=== PATIENT | male | born 1945 | race Caucasian/White ===

== ENCOUNTER 2017-12-06 06:30 | Day surgery (SDC) | payer MEDICARE, BC ==
[2017-12-06] MEDS ORDERED: Lactated Ringers 1,000 ML IV SCH (07:15)
[2017-12-06] MEDS ORDERED: Propofol 200 MG/20 ML SDV ONE (07:29)
[2017-12-06] MEDS ORDERED: fentaNYL 100 MCG/2 ML SDV ONE (07:30)
--- NOTE | 2017-12-06 11:48 | OR ---
DATE OF PROCEDURE: 12/06/2017 PREOPERATIVE DIAGNOSIS: Colon cancer screening. POSTOPERATIVE DIAGNOSES: 1. Diverticulosis. 2. Small cecal polyp. SURGEON: Dieter Reyna MD. PROCEDURES PERFORMED: Colonoscopy to the cecum with biopsy resection of small cecal polyp. ANESTHESIA: IV anesthesia with monitored anesthesia care. INDICATION: This 72-year-old white male is here for a colonoscopy for colon cancer screening. His last colonoscopic exam he says was done TEN years ago. I counseled him for the procedure including risks and alternatives, and he gave his informed consent to proceed. DESCRIPTION OF PROCEDURE: The patient was placed in the left lateral decubitus position. IV anesthesia was administered by the Anesthesia Service. Time-out was held. A rectal exam was performed, which was unremarkable. The flexible video Olympus colonoscope was introduced through his anus, up his rectum and out his colon all the way to the cecum. En route, we saw multiple left-sided diverticula. Once the cecum was reached, the scope was slowly withdrawn, examining the mucosa throughout. In the cecum, we saw a small polyp, which was removed with a couple of bites of the biopsy forceps. The scope was withdrawn. We saw a couple of diverticula in the right colon. There was no bleeding or inflammation associated with them. No other lesions were noted until we reached the left colon. Here and in the sigmoid colon, we saw multiple diverticula with, again, no bleeding or inflammation associated with any of them. The scope was retroflexed in the rectum with the distal rectum appearing unremarkable. The scope was straightened and removed. He tolerated the procedure well. Dieter Reyna MD /[id number] MTDD
== END 2017-12-06 09:20 | disposition home or self-care (01) ==
LOC: JP.SDS 06:30
PROVIDERS: ATTEND Surgery
DX: Z12.11 Encounter for screening for malignant neoplasm of colon (principal); D12.0 Benign neoplasm of cecum; K57.30 Diverticulosis of large intestine without perforation or abscess without bleeding; I10 Essential (primary) hypertension; M19.90 Unspecified osteoarthritis, unspecified site; E78.00 Pure hypercholesterolemia, unspecified
CPT/HCPCS: 45380; J2704; J3010; J7120

== ENCOUNTER 2020-12-16 07:02 | Day surgery (SDC) | payer BC, MEDICARE, OTHER ==
[2020-12-16] MEDS ORDERED: fentaNYL 100 MCG/2 ML SDV ONE (07:20)
[2020-12-16] MEDS ORDERED: Midazolam 1 MG/ML 2 ML SDV ONE (07:20)
[2020-12-16] MEDS ORDERED: Propofol 200 MG/20 ML SDV ONE (07:20)
[2020-12-16] MEDS ORDERED: Sodium Chloride 0.9% 1,000 ML IV SCH (08:00)
--- NOTE | 2020-12-16 13:55 | OR ---
DATE OF PROCEDURE: 12/16/2020 SURGEON: Arun Enriquez MD PROCEDURE: Colonoscopy. FINDINGS: 1. Diverticulosis, mild, mostly limited to sigmoid colon. 2. No other gross abnormalities. COMPLICATIONS: None. RETIREMENT SALES CONSULTANT: None. ANESTHESIA: MAC. PREOPERATIVE DIAGNOSIS: Screening colonoscopy. POSTOPERATIVE DIAGNOSIS: Screening colonoscopy. RISKS: Risks, benefits, alternatives, and limitations including, but not limited to infection, bleeding, perforation, false positives, and false negatives were explained to the patient and he wished to proceed. PROCEDURE IN DETAIL: The patient was placed in left lateral decubitus position. Digital rectal exam was performed without abnormality. Scope was introduced and advanced atraumatically to the ileocecal valve. A photo was taken of the appendiceal orifice. Scope was brought back to the ascending, transverse, descending colon, and retroflexed. No evidence of old or new blood. No masses. No polyps. The diverticulosis was described as mild, limited to sigmoid colon without evidence of diverticulitis or bleeding. No abnormalities noted on retroflexion. The prep was acceptable, approximately 90% of the luminal surface could be seen. Greater than 8 minutes was spent removing the scope. The patient tolerated the procedure well. Arun Enriquez MD /[id number]
== END 2020-12-16 09:55 | disposition home or self-care (01) ==
LOC: JP.SDS 07:02
PROVIDERS: ATTEND Surgery
DX: Z12.11 Encounter for screening for malignant neoplasm of colon (principal); K57.30 Diverticulosis of large intestine without perforation or abscess without bleeding; I10 Essential (primary) hypertension
CPT/HCPCS: 45378; J2250; J2704; J3010; J7030

== ENCOUNTER 2022-04-07 06:02 | Emergency (ER) | payer MEDICARE, BC ==
[2022-04-07 06:58] LABS: CORONAVIRUS COVID-19 NAA NEGATIVE (NEGATIVE)
== END 2022-04-07 07:17 | disposition home or self-care (01) ==
LOC: JP.ED 06:02
DX: J10.1 Influenza due to other identified influenza virus with other respiratory manifestations (principal); E78.00 Pure hypercholesterolemia, unspecified; I10 Essential (primary) hypertension; Z79.899 Other long term (current) drug therapy; Z90.49 Acquired absence of other specified parts of digestive tract; Z20.822 Contact with and (suspected) exposure to COVID-19
CPT/HCPCS: 0241U; 99284; 99283

== ENCOUNTER 2022-08-24 06:36 | Day surgery (SDC) | payer MEDICARE, BC ==
[2022-08-24] MEDS ORDERED: Midazolam 1 MG/ML 2 ML SDV ONE (06:52)
[2022-08-24] MEDS ORDERED: Propofol 200 MG/20 ML SDV ONE ×3 (06:52→09:36)
[2022-08-24] MEDS ORDERED: fentaNYL 50 MCG/ML SDV ONE (06:52)
[2022-08-24] MEDS ORDERED: Lidocaine 1% with EPINEPHrine 1:100,000 50 ML MDV ONE (06:55)
[2022-08-24] MEDS ORDERED: Bupivacaine 0.5% 50 ML MDV ONE (06:55)
[2022-08-24] MEDS ORDERED: Dextrose 5%-Lactated Ringers 1,000 ML IV SCH (07:30)
[2022-08-24] MEDS ORDERED: Lidocaine 1% 50 ML MDV ONE (07:54)
[2022-08-24] MEDS ORDERED: Linezolid 600 MG in Premix Bag 1 BAG IV ONE (08:00)
[2022-08-24] MEDS ORDERED: Sodium Chloride 0.9% 10 ML ONE ×2 (09:14→09:18)
[2022-08-24] MEDS ORDERED: Meropenem 500 MG SDV ONE ×2 (09:14→09:18)
[2022-08-24] MEDS ORDERED: Linezolid 600 MG/300 ML Premix Bag IRR ONE (09:20)
[2022-08-24] MEDS ORDERED: Bacitracin Oint 1 GM U/D Packet ONE (09:23)
[2022-08-24] MEDS ORDERED: Hydrogen Peroxide 3% Top Soln 240 ML Bottle ONE (09:45)
[2022-08-24] MEDS: fentaNYL 50 MCG/ML SDV IVPUSH ONE ×2 (09:58→09:59)
[2022-08-24] MEDS ORDERED: Bacitracin Oint 28.35 GM Tube TOP SCH (11:00)
== END 2022-08-24 11:25 | disposition home or self-care (01) ==
LOC: JP.SDS 06:36
PROVIDERS: ATTEND Surgery
DX: C44.212 Basal cell carcinoma of skin of right ear and external auricular canal (principal); T81.49XA Infection following a procedure, other surgical site, initial encounter; L08.89 Other specified local infections of the skin and subcutaneous tissue; L57.8 Other skin changes due to chronic exposure to nonionizing radiation; Z79.899 Other long term (current) drug therapy
CPT/HCPCS: 17282; 69110; 87070; 87075; 87077; 87186; 87205; 88305; A9270; J2001; J2020; J2185; J2250; J2704; J3010; J3490; J7121

== ENCOUNTER 2022-11-02 06:24 | Day surgery (SDC) | payer MEDICARE, BC ==
[2022-11-02] MEDS ORDERED: Bupivacaine 0.5% 50 ML MDV ONE (06:50)
[2022-11-02] MEDS ORDERED: Lidocaine 1% with EPINEPHrine 1:100,000 50 ML MDV ONE (06:50)
[2022-11-02] MEDS ORDERED: Dextrose 5%-Lactated Ringers 1,000 ML IV SCH (07:00)
[2022-11-02] MEDS ORDERED: Meropenem 500 MG SDV ONE (07:01)
[2022-11-02] MEDS ORDERED: fentaNYL 100 MCG/2 ML SDV ONE (07:21)
[2022-11-02] MEDS ORDERED: Propofol 200 MG/20 ML SDV ONE ×2 (07:21→08:41)
[2022-11-02] MEDS ORDERED: Midazolam 1 MG/ML 2 ML SDV ONE (07:21)
[2022-11-02] MEDS ORDERED: ceFAZolin 2 GM in Premix Bag 1 BAG IV ONE (07:30)
[2022-11-02] MEDS ORDERED: Lidocaine 1% 50 ML MDV ONE (08:19)
[2022-11-02] MEDS ORDERED: Linezolid 600 MG/300 ML Premix Bag IRR ONE (08:25)
[2022-11-02] MEDS ORDERED: Bacitracin Oint 1 GM U/D Packet ONE (09:01)
== END 2022-11-02 10:07 | disposition home or self-care (01) ==
LOC: JP.SDS 06:24
PROVIDERS: ATTEND Surgery
DX: C44.212 Basal cell carcinoma of skin of right ear and external auricular canal (principal); E78.00 Pure hypercholesterolemia, unspecified; I10 Essential (primary) hypertension; M19.90 Unspecified osteoarthritis, unspecified site
CPT/HCPCS: 11641; 12052; 69110; 88305; 88342; J0690; J2001; J2020; J2185; J2250; J2704; J3010; J3490; J7121